=== PATIENT | female | born 1995 | race African-American/Black ===

== ENCOUNTER 2023-04-26 20:01 | Emergency (ER) | payer OTHER, MEDICAID, SELFPAY ==
[2023-04-26 20:05] VITALS: BP 137/84; PULSE 75; RESP 20; TEMP 36.8; O2SAT 100; BMI 19.3
[2023-04-26 21:35] VITALS: PULSE 56; O2SAT 100
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
[2023-04-26 22:00] VITALS: BP 119/83; PULSE 63; O2SAT 100
[2023-04-26 22:00] LABS: Urine Volume 10mL (spun)
[2023-04-26 22:01] LABS: Bacteria Urine Few (2-10); RBC Urine 0-1/HPF (0-5/HPF); Squamous Epithelial Cell Urine 10-30 /HPF (0-5/HPF); WBC Urine 5-10/HPF (0-5/HPF)
[2023-04-26 22:02] LABS: Culture Indicated Urine Specimen Cultured
[2023-04-26 22:30] VITALS: BP 114/76; PULSE 70; O2SAT 100
[2023-04-26 23:00] VITALS: BP 126/82; PULSE 84; O2SAT 100
[2023-04-26] MEDS: SODIUM CHLORIDE 0.9% 1,000 ML 1000 ML IV (23:13)
[2023-04-26] MEDS: KETOROLAC 30 MG/ML VIAL 15 MG IV (23:16)
[2023-04-26] MEDS: HYDROMORPHONE 0.5 MG INJ IV (23:16)
[2023-04-26 23:17] LABS: Add Manual Diff / Slide Review NO; Basophils Absolute Auto 0 /uL (0-100); Basophils Percent Auto 0.9 % (0-2); Eosinophils Absolute Auto 100 /uL (0-450); Eosinophils Percent Auto 1.4 % (2-4); Hematocrit 38.6 % (36-46); Hemoglobin 12.7 g/dL (12.0-16.0); Lymphocytes Absolute Auto 2100 /uL (1100-4500); Lymphocytes Percent Auto 50.8 % (25-40); Mean Corpuscular Hemoglobin 28.4 PG (26-34); Mean Corpuscular Volume 86.1 fL (80-100); Monocytes Absolute Auto 200 /uL (0-900); Monocytes Percent Auto 5.9 % (3-14); Neutrophils Absolute Auto 1700 /uL (1500-7000); Platelet Count 197 X10^3/uL (150-400); Red Blood Cell Count 4.48 X10^6/uL (4.0-5.2); Red Cell Distribution Width 13.5 % (11.6-14.8); White Blood Cell Count 4.2 X10^3/uL (4.5-11.0)
[2023-04-26 23:24] LABS: Alanine Aminotransferase 13 IU/L (<35); Albumin 3.8 g/dL (3.5-5.0); Albumin Globulin Ratio 1.2 (1.0-2.8); Alkaline Phosphatase 46 U/L (38-126); Aspartate Aminotransferase 22 IU/L (14-36); BUN Creatinine Ratio 10.6 (6-22); Bilirubin Total 0.6 mg/dL (0.2-1.3); Blood Urea Nitrogen 7 mg/dL (7-17); Calcium 9.2 mg/dL (8.4-10.2); Carbon Dioxide 27 mmol/L (22-32); Chloride 109 mmol/L (98-107); Estimated Glomerular Filt Rate > 60 mL/min (>60); Globulin 3.1 g/dL (1.7-4.1); Glucose 74 mg/dL (70-100); HEMOLYSIS < 15 (0-50); Lipase 18 U/L (23-300); Magnesium 1.9 mg/dL (1.6-2.3); Potassium 3.5 mmol/L (3.4-5.1); Sodium 142 mmol/L (137-145); Total Protein 6.9 g/dL (6.3-8.2)
[2023-04-26 23:30] VITALS: BP 111/81; PULSE 69; O2SAT 100
[2023-04-27] VITALS (76 sets, daily range): BP systolic 101–145; BP diastolic 57–96; PULSE 55–83; RESP 16–18; TEMP 36.8; O2SAT 96–100; BMI 18.8
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
[2023-04-27 02:53] LABS: Thyroid Stimulating Hormone 0.986 uIU/mL (0.47-4.68)
--- NOTE | 2023-04-27 04:26 | DI.MRI.S_ITS ---
PROCEDURE: MR THORACIC SPINE WO/W CON INDICATIONS: acute paralysis with paresthesia bilateral arms and legs TECHNIQUE: Noncontrast sagittal T1 spin echo and T2 fast spin echo, sagittal STIR, axial T1 and T2 fast spin echo through the thoracic spine. After the administration of contrast, axial and sagittal T1 spin echo with fat saturation through the thoracic spine. COMPARISON: [facility], MR, MR CERVICAL SPINE WO/W CON, 04/27/2023, 7:01. [facility], MR, MR LUMBAR SPINE WO/W CON, 04/27/2023, 7:01. [facility], MR, MR HEAD/BRAIN WO/W CON, 04/27/2023, 7:01. FINDINGS: Image quality: Diagnostic, with note made of motion artifact. Alignment and curvature: There is normal bony alignment. Marrow: Marrow is of normal overall signal. No acute vertebral body compression fractures. Spinal cord: Visualized spinal cord is of normal signal and size, without abnormal enhancement. Paraspinous soft tissues: No paravertebral masses or abnormal enhancement. Miscellaneous: Central canal and foramina appear widely patent at all scanned levels. IMPRESSION: Normal. No abnormal enhancement is seen. Dictated by: Keo Luo M.D. on 04/27/2023 at 8:14 Approved by: Keo Luo M.D. on 04/27/2023 at 8:16
--- NOTE | 2023-04-27 04:26 | DI.MRI.S_ITS ---
PROCEDURE: MR LUMBAR SPINE WO/W CON INDICATIONS: acute paralysis with paresthesia bilateral arms and legs TECHNIQUE: Noncontrast sagittal T1 spin echo and T2 fast spin echo, sagittal STIR, axial T1 and T2 fast spin echo through the lumbar spine. In cases with scoliosis, additional coronal T2 fast spin echo may be performed. After the administration of contrast, sagittal and axial T1 spin echo with fat saturation through the lumbar spine. COMPARISON: [facility], MR, MR CERVICAL SPINE WO/W CON, 04/27/2023, 7:01. [facility], MR, MR THORACIC SPINE WO/W CON, 04/27/2023, 7:01. [facility], MR, MR HEAD/BRAIN WO/W CON, 04/27/2023, 7:01. FINDINGS: Image quality: Diagnostic Alignment and curvature: There is normal bony alignment. Marrow: Marrow is of normal overall signal. No acute vertebral body compression fractures. No suspicious marrow enhancement. Spinal cord: Conus medullaris terminates at the L1 level. Visualized spinal cord demonstrates normal signal, without suspicious enhancement. Paraspinous soft tissues: No paravertebral masses or abnormal enhancement. T12-L1: Normal appearance. L1-L2: Normal appearance. L2-L3: Normal appearance. L3-L4: No significant abnormality is seen L4-L5: The disc height and disk signal are well-preserved. Mild generalized disc bulge is seen. Mild facet joint hypertrophy is seen. No significant neural foraminal or central canal narrowing can be seen. L5-S1: The disc height and disk signal are well-preserved. There is a focal annular fissure seen posteriorly. No neural foraminal narrowing or central canal narrowing can be seen. IMPRESSION: No imaging explanation is found for this patient's presenting symptoms. No abnormal enhancement is seen. Additional findings: L5-S1 annular fissure seen posteriorly. Dictated by: Keo Luo M.D. on 04/27/2023 at 8:12 Approved by: Keo Luo M.D. on 04/27/2023 at 8:14
--- NOTE | 2023-04-27 04:26 | DI.MRI.S_ITS ---
PROCEDURE: MR HEAD/BRAIN WO/W CON INDICATIONS: acute paralysis with paresthesia bilateral arms and legs TECHNIQUE: Noncontrast axial T1 spin echo, axial T2 fast spin echo, sagittal and axial FLAIR, coronal T2 fast spin echo, axial gradient echo, axial diffusion and ADC through the brain. After the administration of contrast, axial and coronal and sagittal 3D VIBE or T1 spin echo with fat saturation through the brain. COMPARISON: [facility], MR, MR THORACIC SPINE WO/W CON, 04/27/2023, 7:01. [facility], MR, MR LUMBAR SPINE WO/W CON, 04/27/2023, 7:01. [facility], MR, MR CERVICAL SPINE WO/W CON, 04/27/2023, 7:01. FINDINGS: Image quality: Excellent. CSF Spaces: Basal cisterns are patent. No extra-axial fluid collections. Ventricles are normal in size and shape. Brain: No midline shift. No intracranial bleeds or masses. No abnormal intracranial enhancement. The brainstem appears normal. Diffusion-weighted images demonstrate no acute infarct. No chronic ischemic insults. Normal intravascular flow voids are present. Skull and face: Calvarial marrow is normal in signal. Orbits appear normal. Sinuses: There is a mucous retention cyst seen within the left maxillary sinus. There is opacification left frontal sinus. Sinuses and mastoids otherwise appear clear. IMPRESSION: No findings of acute or subacute infarction can be seen. No masses or abnormal enhancement can be seen. No imaging explanation is found for this patient's presenting symptoms. No acute intracranial hemorrhage is seen. Additional findings: Focal left frontal paranasal sinus disease Dictated by: Keo Luo M.D. on 04/27/2023 at 8:10 Approved by: Keo Luo M.D. on 04/27/2023 at 8:12
--- NOTE | 2023-04-27 04:26 | DI.MRI.S_ITS ---
PROCEDURE: MR CERVICAL SPINE WO/W CON INDICATIONS: acute paralysis with paresthesia bilateral arms and legs TECHNIQUE: Noncontrast sagittal T1 spin echo and T2 fast spin echo, sagittal STIR, foraminal oblique sagittal T2 fast spin echo, axial gradient echo or T2 fast spin echo through the cervical spine. After the administration of contrast, axial and sagittal T1 spin echo with fat saturation through the cervical spine. COMPARISON: [facility], MR, MR THORACIC SPINE WO/W CON, 04/27/2023, 7:01. [facility], MR, MR LUMBAR SPINE WO/W CON, 04/27/2023, 7:01. [facility], MR, MR HEAD/BRAIN WO/W CON, 04/27/2023, 7:01. FINDINGS: Image quality: Diagnostic, with note made of motion artifact. Alignment and curvature: There is overall straightening of the normal cervical lordosis. No focal AP alignment abnormality is seen. Marrow: Marrow is normal in overall signal, without suspicious enhancement. Spinal cord: Visualized spinal cord has normal size and signal. No cerebellar tonsillar herniation. No abnormal intramedullary enhancement. Paraspinous soft tissues: No paravertebral masses or suspicious enhancement. C2-3: Normal appearance. C3-4: Normal appearance. C4-5: Normal appearance. C5-6: Normal appearance. C6-7: Normal appearance. C7-T1: Normal appearance. IMPRESSION: No imaging explanation is found for this patient's presenting symptoms. Straightening of the normal cervical lordosis is seen, which is commonly observed in patients with muscular spasm. No abnormal enhancement is seen. Dictated by: Keo Luo M.D. on 04/27/2023 at 8:16 Approved by: Keo Luo M.D. on 04/27/2023 at 8:18
--- NOTE | 2023-04-27 07:27 | PC.NURSE ---
Patient went with senior games technician for MRI.
[2023-04-27] MEDS: HYDROMORPHONE 0.5 MG INJ IV ×6 (09:26→22:53)
[2023-04-27 09:43] LABS: Bilirubin Urine UA NEGATIVE (NEGATIVE); Glucose Urine UA NEGATIVE (Negative); Ketones Urine UA TRACE (NEGATIVE); Leukocyte Esterase Urine UA 1+ (NEGATIVE); Nitrite Urine UA NEGATIVE (Negative); Occult Blood Urine UA NEGATIVE (Negative); Protein Urine UA 1+ (Negative); Specific Gravity Urine UA >=1.030 (1.000-1.035); Urobilinogen Urine UA 0.2 E.U./dL (0.2)
[2023-04-27 09:49] LABS: Appearance Urine UA Slightly Cloudy; Color Urine UA Amber
[2023-04-27 10:12] LABS: RBC Urine 1-5/HPF (0-5/HPF); Urine Volume 10mL (spun); WBC Urine 10-30/HPF (0-5/HPF)
[2023-04-27 10:13] LABS: Bacteria Urine Few (2-10); Culture Indicated Urine Cult Not Indicated; Squamous Epithelial Cell Urine 10-30 /HPF (0-5/HPF)
[2023-04-27] MEDS: cefTRIAXone 1,000 MG in SODIUM CHLORIDE 0.9% 100 ML 200 MG IV (10:16)
--- NOTE | 2023-04-27 10:33 | PC.NURSE ---
This FIRE BOAT ENGINEER elevated HOB to assist with feeding pt. full assist feeding. asked pt what food she would like to start with. cut the food into small pieces and fed pt when she was ready for a new bite. pt ate 100% of meal and drank 236ml of milk.
--- NOTE | 2023-04-27 10:38 | PC.NURSE ---
*TELLER MANAGER note pushed images and faxed face sheet and doc note to [facility]ce [facility]far[facility]. [facility] says no beds for approx 24-48hrs
[2023-04-27] MEDS: ENOXAPARIN 40 MG/0.4 ML SYRINGE SUBCUT (13:50)
[2023-04-27 15:41] LABS: Vitamin B12 455 pg/mL (239-931)
--- NOTE | 2023-04-27 17:13 | PC.NURSE ---
*SQUEEGEE OPERATOR note called [facility] for a bed placement and they let me know that they dont have one yet and they are short staffed tonight but they will do their best @ [phone]
--- NOTE | 2023-04-27 17:14 | PC.NURSE ---
This RN performed a skin check on patient with SITE ACQUISITION SPECIALIST and skin is uniformly intact.
--- NOTE | 2023-04-27 18:05 | PC.NURSE ---
During lumbar puncture provider requested additional lidocaine without epi 1%. This RN went and overrided the medication and assisted provider to get lidocaine needed.
[2023-04-27] MEDS: LIDOCAINE 1% 20 ML INJ (18:09)
[2023-04-27 18:29] LABS: Glucose CSF 58 mg/dL (40-70); Total Protein CSF 96 mg/dL (12-60)
--- NOTE | 2023-04-27 18:49 | PC.NURSE ---
This RN gave verbal report to MYNOR Dominguez at [facility].
[2023-04-27 19:20] LABS: CSF Tube Number 3; CSF Tube Volume 0.5 mL
[2023-04-27 19:21] LABS: Appearance CSF CLEAR (Clear); Color CSF COLORLESS (Colorless); Red Blood Cell CSF 1534 RBC /uL; White Blood Cell CSF 1 MONO/uL (0-5)
[2023-04-27 19:47] LABS: Cryptococcus neoformans/gattii Not Detected (Not Detect); Enterovirus Not Detected (Not Detect); Escherichia coli K1 Not Detected (Not Detect); Haemophilus influenzae Not Detected (Not Detect); Herpes simplex virus 1 Not Detected (Not Detect); Herpes simplex virus 2 Not Detected (Not Detect); Human herpesvirus 6 Not Detected (Not Detect); Human parechovirus Not Detected (Not Detect); Listeria monocytogenes Not Detected (Not Detect); Neisseria meningitidis Not Detected (Not Detect); Streptococcus agalactiae Not Detected (Not Detect); Streptococcus pneumoniae Not Detected (Not Detect); Varicella Zoster Virus Not Detected (Not Detecte)
[2023-04-27 22:02] LABS: COVID19 -Nasal RAPID Negative (Negative)
[2023-04-28 16:31] LABS: Acinetobacter calcoa-baumannii Not Detected (Not Detect); Bacteroides fragilis Not Detected (Not Detect); Candida albicans Not Detected (Not Detect); Candida auris Not Detected (Not Detect); Candida glabrata Not Detected (Not Detect); Candida krusei Not Detected (Not Detect); Candida parapsilosis Not Detected (Not Detect); Candida tropicalis Not Detected (Not Detect); Cryptococcus neoformans/gatti Not Detected (Not Detect); Enterobacter cloacae complex Not Detected (Not Detect); Enterobacterales Not Detected (Not Detect); Enterococcus faecalis Not Detected (Not Detect); Enterococcus faecium Not Detected (Not Detect); Haemophilus influenzae Not Detected (Not Detect); Klebsiella aerogenes Not Detected (Not Detect); Listeria monocytogenes Not Detected (Not Detect); Neisseria meningitidis Not Detected (Not Detect); Proteus species Not Detected (Not Detect); Pseudomonas aeruginosa Not Detected (Not Detect); Salmonella species Not Detected (Not Detect); Serratia marcescens Not Detected (Not Detect); Staphylococcus epidermidis Not Detected (Not Detect); Staphylococcus lugdunensis Not Detected (Not Detect); Staphylococcus species Not Detected (Not Detect); Stenotrophomonas maltophilia Not Detected (Not Detect); Streptococcus agalactiae (Gr B Not Detected (Not Detect); Streptococcus pneumonia Not Detected (Not Detect); Streptococcus pyogenes (Gr A) Not Detected (Not Detect); Streptococcus species Not Detected (Not Detect)
[2023-05-01 16:01] LABS: ANA Screen, IFA Negative (.)
== END 2023-04-27 23:12 | disposition short-term general hospital (02) ==
PROVIDERS: Emergency Medicine; Emergency Provider Emergency Medicine
DX: G83.9 Paralytic syndrome, unspecified (principal); Z74.09 Other reduced mobility; Z20.822 Contact with and (suspected) exposure to COVID-19
CPT/HCPCS: 36415; 51798; 62270; 70553; 72156; 72157; 72158; 80053; 81001; 81003; 81015; 81025; 82525; 82607; 82945; 83605; 83690; 83735; 84157; 84443; 85025; 86038; 87040; 87070; 87077; 87086; 87154; 87205; 87635; 87798; 89051; 96361; 96365; 96372; 96375; 96376; 99285; J0696; J1170; J1650; J1885

== ENCOUNTER 2023-05-03 15:16 | Emergency (ER) | payer OTHER, MEDICAID, SELFPAY ==
[2023-04-27 13:49] VITALS: BMI 18.8
[2023-05-03] VITALS (10 sets, daily range): BP systolic 112–134; BP diastolic 63–89; PULSE 80–135; RESP 12–24; TEMP 36.4–36.9; O2SAT 99–100
--- NOTE | 2023-05-03 15:58 | PC.NURSE ---
Called to bedsde by pt's brother. Pt eyes closed. HR [address] Bauman called to bedside. Seizure pads placed and IV placed. Pt arousable to painful stimuli and confused upon awakening.
[2023-05-03 16:40] LABS: Add Manual Diff / Slide Review NO; Basophils Absolute Auto 0 /uL (0-100); Basophils Percent Auto 0.6 % (0-2); Eosinophils Absolute Auto 100 /uL (0-450); Eosinophils Percent Auto 1.1 % (2-4); Hematocrit 38.8 % (36-46); Hemoglobin 13.1 g/dL (12.0-16.0); Lymphocytes Absolute Auto 1700 /uL (1100-4500); Mean Corpuscular HGB Conc 33.8 % (30-36); Mean Corpuscular Hemoglobin 29.1 PG (26-34); Mean Corpuscular Volume 86.3 fL (80-100); Monocytes Absolute Auto 300 /uL (0-900); Monocytes Percent Auto 7.4 % (3-14); Neutrophils Absolute Auto 2500 /uL (1500-7000); Neutrophils Percent Auto 53.9 % (50-75); Platelet Count 191 X10^3/uL (150-400); Red Blood Cell Count 4.49 X10^6/uL (4.0-5.2); Red Cell Distribution Width 13.3 % (11.6-14.8); White Blood Cell Count 4.7 X10^3/uL (4.5-11.0)
[2023-05-03 16:46] LABS: Alanine Aminotransferase 19 IU/L (<35); Albumin 4.1 g/dL (3.5-5.0); Albumin Globulin Ratio 1.3 (1.0-2.8); Alkaline Phosphatase 50 U/L (38-126); Aspartate Aminotransferase 32 IU/L (14-36); Bilirubin Total 0.6 mg/dL (0.2-1.3); Blood Urea Nitrogen 12 mg/dL (7-17); Calcium 9.2 mg/dL (8.4-10.2); Carbon Dioxide 25 mmol/L (22-32); Chloride 106 mmol/L (98-107); Estimated Glomerular Filt Rate > 60 mL/min (>60); Globulin 3.1 g/dL (1.7-4.1); Glucose 81 mg/dL (70-100); HEMOLYSIS 21 (0-50); Potassium 3.7 mmol/L (3.4-5.1); Sodium 139 mmol/L (137-145); Total Protein 7.2 g/dL (6.3-8.2)
[2023-05-03] MEDS: SODIUM CHLORIDE 0.9% 1,000 ML 1000 ML IV (16:47)
[2023-05-03 16:58] LABS: Troponin I < 0.012 ng/mL (0.01-0.034)
[2023-05-03 17:03] LABS: Prolactin 16.4 ng/mL (3.0-18.6)
--- NOTE | 2023-05-03 17:46 | ED_ITS ---
HPI - Dizziness General Chief Complaint: Dizziness Stated Complaint: lighthead/ double vision/fatigued t-3 Time Seen by Provider: 05/03/23 15:55 Source: patient and family Mode of arrival: Wheelchair History of Present Illness HPI Narrative: Patient 27-year-old female who presents today with dizziness. She was seen evaluated here last week with paralysis she had a full workup including complete MRI was ultimately transferred to [facility] where she had full neurologic evaluation including EMG is and EEGs. She ambulated out of [facility] family continues to be very involved everyone is on face time in the room with her brothers. She came to the ED DD and had a near syncopal episode on the bed. No obvious shaking or seizure activity there was no postictal activity. She was responsive during the episode but refused to talk now after the episode she stutters. She was not stuttering at any other time until now. She has been complaining of a headache ever since she left [facility]. She has taken a leave it has not really helped. Family reports that she sometimes passes out while eating, but this was different. Mom is on a phone and will be coming here on an airplane tomorrow. Related Data Home Medications Medication Instructions Recorded Confirmed No Known Home Medications 04/27/23 04/27/23 Allergies Allergy/AdvReac Type Severity Reaction Status Date / Time No Known Drug Allergies Allergy Verified 04/26/23 20:17 Patient History Social History Smoking Status: Current some day smoker Smoking Status: Current some day smoker alcohol intake frequency: 0-2 drinks per day Substance Use Type: marijuana Exam Initial Vital Signs Initial Vital Signs: Vital Signs Temperature 97.5 F L 05/03/23 15:19 Pulse Rate 80 05/03/23 15:19 Respiratory Rate 20 05/03/23 15:19 Blood Pressure 112/63 05/03/23 15:19 Pulse Oximetry 99 05/03/23 15:19 Oxygen Delivery Method Room Air 05/03/23 15:19 GENERAL: Awake alert 27-year-old female HEENT: Head atraumatic,EOMI, pupils reactive, face symmetric, moist mucous membranes CARDIOVASCULAR: Regular rate and rhythm without murmurs, rubs or gallops. RESPIRATORY: Breath sounds equal bilaterally, no wheezes rales or rhonchi. ABDOMEN: Soft, nontender. Normoactive bowel sounds all 4 quadrants. No guarding or rebound. EXTREMITIES: Normal range of motion, no clubbing or edema. Neurovascularly intact NEUROLOGICAL: Alert and oriented x4.Normal gait and speech. Cranial nerves II through XII grossly intact. Good [id number]-fu-uksm, good dnza-tl-vvns, strength equal bilaterally, no dysarthria or aphasia, sensation in tact to soft touch bilaterally, no visual changes, no facial droop SKIN: Warm, dry, no laceration, no petechiae, no rashes or lesions. Course Orders Ordered: ED Orders 05/03/23 15:50 CBC Auto Diff [Complete Blood Count AUTO DIFF] Stat CMP [Comprehensive Metabolic Panel] Stat Prolactin Stat Troponin I Stat 05/03/23 16:59 EKG-12 Lead Stat 05/03/23 18:32 Urine Culture Stat Urine Microscopic Stat Discontinued Medications Sodium Chloride (Normal Saline 0.9%) 1,000 mls @ 150 mls/hr IV CONT JONAS Last Admin: 05/03/23 16:47 Dose: Not Given Documented By: LIUDMILA Sodium Chloride (Normal Saline 0.9%) 1,000 mls @ 1,000 mls/hr IV BOLUS ONE Stop: 05/03/23 17:29 Last Infusion: 05/03/23 18:14 Dose: Infused Documented By: Admin: 05/03/23 16:47 Dose: 1,000 mls/hr Documented By: LIUDMILA Ketorolac Tromethamine (Ketorolac 30 Mg/Ml Vial) 15 mg IV NOW ONE Stop: 05/03/23 17:53 Last Admin: 05/03/23 18:17 Dose: 15 mg Documented By: LIUDMILA Vital Signs Vital signs: Vital Signs - 8 hr 05/03/23 15:19 05/03/23 15:56 05/03/23 16:06 Temperature 97.5 F L Pulse Rate 80 135 H Respiratory Rate 20 24 12 Blood Pressure 112/63 131/89 Pulse Oximetry 99 99 100 Oxygen Delivery Method Room Air Room Air 05/03/23 16:12 05/03/23 16:12 05/03/23 16:15 Temperature Pulse Rate 90 88 Respiratory Rate 17 12 Blood Pressure 131/89 Pulse Oximetry 100 100 Oxygen Delivery Method 05/03/23 16:30 05/03/23 16:30 05/03/23 16:45 Temperature Pulse Rate 87 86 Respiratory Rate 16 13 Blood Pressure 134/80 Pulse Oximetry 100 100 Oxygen Delivery Method 02/23/24 17:00 05/03/23 17:00 05/03/23 17:15 Temperature Pulse Rate 83 85 Respiratory Rate 21 15 Blood Pressure 131/77 Pulse Oximetry 100 100 Oxygen Delivery Method 05/03/23 19:03 Temperature 98.5 F Pulse Rate 86 Respiratory Rate 20 Blood Pressure 127/71 Pulse Oximetry 100 Oxygen Delivery Method Room Air MDM - Dizziness Lab Data 05/03/23 15:50 05/03/23 15:50 Labs: Lab Results 05/03/23 05/03/23 Range/Units 15:50 18:32 WBC 4.7 (4.5-11.0) X10^3/uL RBC 4.49 (4.0-5.2) X10^6/uL Hgb 13.1 (12.0-16.0) g/dL Hct 38.8 (36-46) % MCV 86.3 (80-100) fL MCH 29.1 (26-34) PG MCHC 33.8 (30-36) % RDW 13.3 (11.6-14.8) % Plt Count 191 (150-400) X10^3/uL Neut % (Auto) 53.9 (50-75) % Lymph % (Auto) 37.0 (25-40) % Cherry % (Auto) 7.4 (3-14) % Eos % (Auto) 1.1 L (2-4) % Baso % (Auto) 0.6 (0-2) % Neut # (Auto) 2500 (9321-4541) /uL Lymph # (Auto) 1700 (6647-3885) /uL Cherry # (Auto) 300 (0-900) /uL Eos # (Auto) 100 (0-450) /uL Baso # (Auto) 0 (0-100) /uL Sodium 139 (137-145) mmol/L Potassium 3.7 (3.4-5.1) mmol/L Chloride 106 (98-107) mmol/L Carbon Dioxide 25 (22-32) mmol/L BUN 12 (7-17) mg/dL Creatinine 0.63 (0.52-1.04) mg/dL Estimated GFR > 60 (>60) mL/min BUN/Creatinine Ratio 19.0 (6-22) Glucose 81 (70-100) mg/dL Calcium 9.2 (8.4-10.2) mg/dL Total Bilirubin 0.6 (0.2-1.3) mg/dL AST 32 (14-36) IU/L ALT 19 (<35) IU/L Alkaline Phosphatase 50 (38-126) U/L Troponin I < 0.012 (0.01-0.034) ng/mL Total Protein 7.2 (6.3-8.2) g/dL Albumin 4.1 (3.5-5.0) g/dL Globulin 3.1 (1.7-4.1) g/dL Albumin/Globulin Ratio 1.3 (1.0-2.8) Prolactin 16.4 (3.0-18.6) ng/mL Urine RBC 0-1/hpf (0-5/HPF) Urine WBC 1-5/hpf (0-5/HPF) Ur Squamous Epith Cells 1-5 /hpf D (0-5/HPF) Urine Bacteria Few (2-10) H (None) Ur Culture Indicated? Specimen cultured Vol Urine Centrifuged 10ml (spun) Point of Care Testing Test Results Negative Urine Dip Bedside Urine Glucose Negative Bedside Urine Bilirubin - Negative Bedside Urine Ketone - Negative Urine Specific [place] 1.010 Bedside Urine Occult Blood - Negative Bedside Urine pH 7.0 Bedside Urine Protein - Negative Bedside Urine Urobilinogen - Negative Bedside Urine Nitrite - Negative Bedside Urine Leukocytes +++ 500 Esterase MDM Narrative Medical decision making narrative: Patient 27-year-old female presents today with a syncopal episode dizziness and headache. She has had complete neurologic evaluation recently I discussed with family about possibility of PTSD. They report that Kayce marcano address that as well they do report a history of PTSD. I have explained that sometimes PTSD and psychologic disorders can present physically which I think would that is happening now. I encouraged him to go down a psychologic route rather than neurologic route. All neurologic studies have come back negative. Blood work today has been reviewed and is again negative. She is given IV fluids and Toradol here in the ED I have explained that she will be going home. Patient ambulated without assistance and was speaking in full sentences upon discharge Discharge Plan Departure Patient Disposition: Home Clinical Impression: PTSD (post-traumatic stress disorder) Instructions: Cognitive Behavioral Therapy Is an Effective, but Short-term Treatment for , Post-traumatic Stress Disorder Activity Restrictions/Additional Instructions: *You have been diagnosed with PTSD *What to do: At this time neurologic studies happened negative I would encourage you to pursue a psychological around in a PTSD route. Psychological diseases can present and physical forms. Encouraged to get a primary care provider *Continue to take medications as directed *Follow up with your primary care provider in 2-3 days or call [phone] *Return to ER if you should have any new, worsening or concerning symptoms Prescriptions: No Action No Known Home Medications Referrals: Miscellaneous,Doctor, [Primary Care Provider] - Stand Alone Forms: Patient Portal/API
[2023-05-03] MEDS: KETOROLAC 30 MG/ML VIAL 15 MG IV (18:17)
--- NOTE | 2023-05-03 18:31 | PC.NURSE ---
Pt ambulated to bathroom with stand by assist. Pt speaking in full sentences and answers all questions appropriately.
[2023-05-03 18:56] LABS: Urine Volume 10mL (spun)
[2023-05-03 19:05] LABS: Bacteria Urine Few (2-10); Culture Indicated Urine Specimen Cultured; RBC Urine 0-1/HPF (0-5/HPF); Squamous Epithelial Cell Urine 1-5 /HPF (0-5/HPF); WBC Urine 1-5/HPF (0-5/HPF)
== END 2023-05-03 19:05 | disposition home or self-care (01) ==
PROVIDERS: Emergency Provider Emergency Medicine
DX: F43.10 Post-traumatic stress disorder, unspecified (principal); R42 Dizziness and giddiness; R51.9 Headache, unspecified
CPT/HCPCS: 36415; 80053; 81003; 81015; 81025; 84146; 84484; 85025; 87086; 93005; 96361; 96374; 99284; J1885

== ENCOUNTER 2023-06-20 04:26 | Inpatient (IN) | payer OTHER, MEDICAID, SELFPAY ==
[2023-04-27 13:49] VITALS: BMI 18.8
[2023-06-20] VITALS (26 sets, daily range): BP systolic 112–135; BP diastolic 60–89; PULSE 56–104; RESP 14–18; TEMP 36.1–36.8; O2SAT 93–100; BMI 19.3
--- NOTE | 2023-06-20 | DI.RAD.S_ITS ---
PROCEDURE: XR CHEST 1V INDICATIONS: NG TUBE PLACEMENT TECHNIQUE: One view of the chest was acquired. COMPARISON: None. FINDINGS: Surgical changes and devices: NG tube projects to the stomach. Lungs and pleura: Lungs are clear. No pleural effusions or pneumothorax. Mediastinum: Mediastinal contours appear normal. Heart size is normal. Bones and chest wall: No suspicious bony lesions. Overlying soft tissues appear unremarkable. IMPRESSION: NG tube projects to the stomach. No acute pulmonary process. Dictated by: Seth Soria M.D. on 06/20/2023 at 16:33 Approved by: Seth Soria M.D. on 06/20/2023 at 16:35
--- NOTE | 2023-06-20 | PATH_ITS ---
[facility] Accession Number: [id number] No. of containers..01 Tissue . 01 Material submitted: . small bowel - SMALL BOWEL, SEGMENTAL RESECTION . 01 Diagnosis: SMALL BOWEL, SEGMENTAL RESECTION: 1. Segment of small bowel with serositis and adhesions, with associated congestion and hemorrhage. 2. Associated active mucosal inflammation with erosion, present primarily in the involved region. 3. No endometrial glands or stroma identified. 4. No dysplasia, malignancy, granulomas, or infectious organisms identified. See comment. . Specimen Comments: The clinical suspicion for possible endometriosis is noted, but no endometrial glands or stroma are seen in the multiple sections examined. The possibility of endometriosis is not entirely ruled out, but the differential includes many other causes of bowel adhesions and bowel obstruction. The presence of ileal inflammation likely is secondary to the presence of bowel adhesions and obstruction, although mucosal inflammatory conditions (e.g, Crohn's), may also be considered. This case was also reviewed by Dr. Jauregui, who concurs with this evaluation. Preliminary findings were discussed with Dr. Murcia by Dr. Martinez on 06/27/2023. STO 06/28/2023 1105 Local . 01 Electronically signed: . Salvatore Martinez MD, Pathologist NPI- [id number] . 01 Gross description: . Received in formalin, labeled with two identifiers and small bowel, is an unoriented fragment of small bowel measuring 11.6 cm in length by 2.1 cm in average diameter with mesentery extending out to 3.1 cm. The serosa is dusky with an annular roughened indent measuring 5.0 cm from the nearest margin, which is inked blue. The opposite margin is inked black, the mesenteric margin is inked green, and the annular roughened serosa inked orange. The lumen contains rogers to orange semisolid material and is patent. The mucosa is rogers and velvety with two roughened areas, both measuring 1.0 x 0.5 cm. The folds are unremarkable with no additional lesions identified. The arevalo average 0.3 cm thick. Palpation reveals six rogers lymph node candidates ranging from 0.2 cm to 0.6 cm in greatest dimension. Advertising Operations Coordinator sections are submitted as follows: A1: Advertising Operations Coordinator margins en face. A2: Areas of roughened mucosa and serosa. A3: Unremarkable full-thickness sections. A4: Three intact lymph node candidates. A5: Three intact lymph node candidates. ([id number]) . The remaining orange-inked roughened serosa is submitted in A6-A7. ([id number]) /FRR 06/28/2023 1105 Local . 01 Pathologist provided ICD-10: K56.50, K56.609 . 01 CPT . 284695 Performed at: 01 [facility] [address] [place] [address], [place], [place] [id number] MD Salvatore Martinez MD Phone: [phone]
--- NOTE | 2023-06-20 04:32 | DI.CT.S_ITS ---
PROCEDURE: CT ABDOMEN PELVIS W CON INDICATIONS: l sided abd pain TECHNIQUE: After the administration of intravenous contrast, axial sections acquired from the lung bases to the pubic symphysis. Coronal and sagittal reformats were performed. For radiation dose reduction, the following was used: automated exposure control, adjustment of mA and/or kV according to patient size. COMPARISON: None. FINDINGS: Image quality: Diagnostic. Lower Chest: No significant findings. ABDOMEN: Liver: No solid mass. Gallbladder: No radiopaque gallstones or wall thickening. Biliary ducts: No biliary dilation. Pancreas: No ductal dilation. Spleen: Size is within normal limits. Adrenal Glands: No adrenal nodules. Kidneys and Ureters: No hydronephrosis. No solid mass. No complex renal cystic lesion which requires follow up. Stomach and Bowel: There is a small bowel obstruction present. Question closed loop obstruction. The obstructed small bowel has normal small bowel both proximal to it and distal to it, raising this concern. Small bowel is dilated up to 3.2 cm. There is fecalization of material within this small bowel loop. The wall is not thickened. There is no intramural gas. There is no free air. Peritoneum: Mild ascites. No free air. Ventral Wall: No significant ventral hernia. Abdominal Nodes: No retroperitoneal or mesenteric adenopathy by size criteria. Vessels: Aorta and inferior vena cava are normal in size. PELVIS: Pelvic Organs: Unremarkable. Bladder: No bladder wall thickening, accounting for underdistention. Pelvic Nodes: No enlarged lymph nodes. Miscellaneous: No inguinal hernias are seen. Bones: No aggressive osseous abnormality. IMPRESSION: 1. Small bowel obstruction. Question the presence of a closed loop obstruction. 2. Mild ascites. Comment: Recommend surgical consultation. Comment: Final report is concordant with preliminary interpretation provided by [facility]. Dictated by: Seth Soria M.D. on 06/20/2023 at 7:24 Approved by: Seth Soria M.D. on 06/20/2023 at 7:40
--- NOTE | 2023-06-20 04:33 | ED_ITS ---
HPI - General Adult General Chief complaint: Abdominal Pain Stated complaint: abd pain Time Seen by Provider: 06/20/23 04:27 Source: patient Mode of arrival: EMS Limitations: no limitations History of Present Illness HPI narrative: Patient is a 27-year-old female here for evaluation of left-sided abdominal discomfort. He states she was woken from sleep with discomfort tonight. She would symptoms similar to this about a week ago where she was seen at an outside facility and was diagnosed with a kidney infection. She has been taking the antibiotics as directed. She states she has not had a bowel movement several days. She received Zofran and fentanyl prior to arrival. Pain is worse with palpation. No urinary symptoms. No prior abdominal surgeries. She states she has been having progressively worsening discomfort in her abdomen with vomiting over the past week. Related Data Home Medications Medication Instructions Recorded Confirmed No Known Home Medications 04/27/23 04/27/23 Allergies Allergy/AdvReac Type Severity Reaction Status Date / Time No Known Drug Allergies Allergy Verified 04/26/23 20:17 Review of Systems Constitutional Constitutional: Reports system reviewed and no additional complaints, except as documented Gastrointestinal Gastrointestinal: Reports system reviewed and no additional complaints, except as documented Genitourinary Genitourinary: Reports system reviewed and no additional complaints, except as documented Integumentary/Breasts Skin/Breast: Reports system reviewed and no additional complaints, except as documented Patient History Social History Smoking Status: Current some day smoker Smoking Status: Current some day smoker alcohol intake frequency: 0-2 drinks per day Substance Use Type: marijuana Exam Initial Vital Signs Initial Vital Signs: Vital Signs Pulse Rate 85 06/20/23 04:31 Pulse Oximetry 98 06/20/23 04:31 HENIA Head: normal to inspection and normocephalic Resp Effort & Inspection: normal respiratory effort Cardio Rate: regular rate GI Inspection: normal to inspection and non-distended Palpation: soft, No firm, No guarding and tender Back/Spine/Pelvis Back: CVA tenderness left Skin General: no rashes or lesions noted Neuro General: patient alert and patient awake Course Orders Ordered: ED Orders 06/20/23 04:32 CT abdomen pelvis w con Stat 06/20/23 04:35 Complete Blood Count AUTO DIFF Stat Comprehensive Metabolic Panel Stat Lipase Stat Test Serum,Qual Stat 06/20/23 06:04 Lactate (Lactic Acid) Stat Sodium Chloride (Normal Saline 0.9%) 1,000 mls @ 125 mls/hr IV CONT JONAS Last Admin: 06/20/23 04:55 Dose: 125 mls/hr Documented By: AB Discontinued Medications Ketorolac Tromethamine (Ketorolac 30 Mg/Ml Vial) 30 mg IV NOW ONE Stop: 06/20/23 05:57 Last Admin: 06/20/23 06:01 Dose: 30 mg Documented By: AB Vital Signs Vital signs: Vital Signs - 8 hr 06/20/23 04:31 06/20/23 04:32 06/20/23 05:00 Temperature 97.5 F L Pulse Rate 85 76 69 Respiratory Rate 16 Blood Pressure 119/82 Pulse Oximetry 98 99 98 Oxygen Delivery Method Room Air 06/20/23 05:30 06/20/23 06:00 Temperature Pulse Rate 60 63 Respiratory Rate Blood Pressure Pulse Oximetry 100 100 Oxygen Delivery Method Medical Decision Making Medical Records Medical records reviewed: Yes I reviewed the patient's medical records. Lab Data Lab results reviewed: Yes I reviewed the patient's lab results. 06/20/23 04:35 06/20/23 04:35 Labs: Lab Results 06/20/23 Range/Units 04:35 WBC 6.5 (4.5-11.0) X10^3/uL RBC 4.42 (4.0-5.2) X10^6/uL Hgb 12.5 (12.0-16.0) g/dL Hct 37.4 (36-46) % MCV 84.7 (80-100) fL MCH 28.2 (26-34) PG MCHC 33.4 (30-36) % RDW 12.9 (11.6-14.8) % Plt Count 551 H (150-400) X10^3/uL Neut % (Auto) 71.7 (50-75) % Lymph % (Auto) 21.1 L (25-40) % Rains % (Auto) 5.7 (3-14) % Eos % (Auto) 0.7 L (2-4) % Baso % (Auto) 0.8 (0-2) % Neut # (Auto) 4700 (6569-5213) /uL Lymph # (Auto) 1400 (3807-0429) /uL Rains # (Auto) 400 (0-900) /uL Eos # (Auto) 0 (0-450) /uL Baso # (Auto) 0 (0-100) /uL Sodium 142 (137-145) mmol/L Potassium 4.0 (3.4-5.1) mmol/L Chloride 106 (98-107) mmol/L Carbon Dioxide 31 (22-32) mmol/L BUN 12 (7-17) mg/dL Creatinine 0.64 (0.52-1.04) mg/dL Estimated GFR > 60 (>60) mL/min BUN/Creatinine Ratio 18.8 (6-22) Glucose 106 H (70-100) mg/dL Calcium 9.5 (8.4-10.2) mg/dL Total Bilirubin 0.4 (0.2-1.3) mg/dL AST 22 (14-36) IU/L ALT 13 (<35) IU/L Alkaline Phosphatase 79 (38-126) U/L Total Protein 7.7 (6.3-8.2) g/dL Albumin 3.5 (3.5-5.0) g/dL Globulin 4.2 H (1.7-4.1) g/dL Albumin/Globulin Ratio 0.8 L (1.0-2.8) Lipase 19 L (23-300) U/L Serum , Qual Negative (Negative) Point of Care Testing Test Results Negative Urine Dip Bedside Urine Glucose Negative Bedside Urine Bilirubin - Negative Bedside Urine Ketone - Negative Urine Specific [place] 1.015 Bedside Urine Occult Blood - Negative Bedside Urine pH 8.0 Bedside Urine Protein +/- 15 Bedside Urine Urobilinogen - Negative Bedside Urine Nitrite - Negative Bedside Urine Leukocytes - Negative Esterase Point of care testing: Point of Care Testing Test Results Negative Urine Dip Bedside Urine Glucose Negative Bedside Urine Bilirubin - Negative Bedside Urine Ketone - Negative Urine Specific [place] 1.015 Bedside Urine Occult Blood - Negative Bedside Urine pH 8.0 Bedside Urine Protein +/- 15 Bedside Urine Urobilinogen - Negative Bedside Urine Nitrite - Negative Bedside Urine Leukocytes - Negative Esterase Imaging Data CT scan - abdomen/pelvis: Radiologist's Impression: Findings compatible with a small-bowel obstruction with a transition point within the mid abdomen. Mild swirling of the mesenteric vessels within this region. Can not exclude the possibility of an internal hernia or volvulus. MDM Narrative Medical decision making narrative: Patient does have a relatively benign abdominal exam but has discomfort on the left side. Labs today relatively unremarkable. Urinalysis shows no signs of UTI. CT scan concerning for small bowel obstruction. Discussed the case with Dr. Billingsley on-call for General surgery who will admit for further evaluation and treatment. Discussed the need for admission with the patient. She expressed understanding and agreement as well. Discharge Plan Departure Patient Disposition: Admitted as Observation Clinical Impression: Small bowel obstruction Admit Date/Time: 06/20/23 06:08 Admit Provider: Jacob Billingsley
--- NOTE | 2023-06-20 04:49 | PC.NURSE ---
Pt seen recently for kidney/bladder infection at [facility]. Pt has been seen by [facility] Neurology within the last month due to difficulty moving. Ruled out MG, but currently has no diagnosis for immobility issues. Pt has stopped going to cosmetology school due to the limitations with standing. Since around end of May beginning of June pt has been on medical leave from work/school.
[2023-06-20] MEDS: SODIUM CHLORIDE 0.9% 1,000 ML 125 ML IV ×3 (04:55→23:22)
[2023-06-20 05:25] LABS: Add Manual Diff / Slide Review NO; Basophils Absolute Auto 0 /uL (0-100); Basophils Percent Auto 0.8 % (0-2); Eosinophils Absolute Auto 0 /uL (0-450); Eosinophils Percent Auto 0.7 % (2-4); Hematocrit 37.4 % (36-46); Hemoglobin 12.5 g/dL (12.0-16.0); Lymphocytes Absolute Auto 1400 /uL (1100-4500); Lymphocytes Percent Auto 21.1 % (25-40); Mean Corpuscular HGB Conc 33.4 % (30-36); Mean Corpuscular Hemoglobin 28.2 PG (26-34); Mean Corpuscular Volume 84.7 fL (80-100); Monocytes Absolute Auto 400 /uL (0-900); Monocytes Percent Auto 5.7 % (3-14); Neutrophils Absolute Auto 4700 /uL (1500-7000); Neutrophils Percent Auto 71.7 % (50-75); Platelet Count 551 X10^3/uL (150-400); Red Blood Cell Count 4.42 X10^6/uL (4.0-5.2); Red Cell Distribution Width 12.9 % (11.6-14.8); White Blood Cell Count 6.5 X10^3/uL (4.5-11.0)
[2023-06-20 05:28] LABS: Alanine Aminotransferase 13 IU/L (<35); Albumin 3.5 g/dL (3.5-5.0); Albumin Globulin Ratio 0.8 (1.0-2.8); Alkaline Phosphatase 79 U/L (38-126); Aspartate Aminotransferase 22 IU/L (14-36); BUN Creatinine Ratio 18.8 (6-22); Bilirubin Total 0.4 mg/dL (0.2-1.3); Blood Urea Nitrogen 12 mg/dL (7-17); Calcium 9.5 mg/dL (8.4-10.2); Carbon Dioxide 31 mmol/L (22-32); Chloride 106 mmol/L (98-107); Estimated Glomerular Filt Rate > 60 mL/min (>60); Globulin 4.2 g/dL (1.7-4.1); Glucose 106 mg/dL (70-100); HEMOLYSIS < 15 (0-50); Lipase 19 U/L (23-300); Sodium 142 mmol/L (137-145); Total Protein 7.7 g/dL (6.3-8.2)
[2023-06-20 05:38] LABS: Pregnancy Test Serum,Qual Negative (Negative)
[2023-06-20] MEDS: KETOROLAC 30 MG/ML VIAL IV (06:01)
[2023-06-20] MEDS: PANTOPRAZOLE 40 MG VIAL IV (06:33)
[2023-06-20] MEDS: ONDANSETRON 4 MG/2 ML INJ IV ×2 (07:40→18:34)
--- NOTE | 2023-06-20 08:49 | PC.NURSE ---
Dr. Murcia contacted again regarding admission orders. Pt endorses 9/10 pain on left side; pt states this is similar to earlier. MD notified. Pt remains hypodermically stable at this time. Currently resides in ED waiting for open floor bed. Pt states nausea is resolved at this time.
[2023-06-20] MEDS: HYDROMORPHONE 0.5 MG INJ IV ×3 (09:14→16:10)
--- NOTE | 2023-06-20 11:35 | PM.HP.1 ---
History of Present Illness History of Present Illness Date Patient Seen: 06/20/23 Time Patient Seen: 11:36 Chief complaint: abd pain Narrative: Ariela Cifuentes is a 27-year-old woman who presented to the emergency department early this morning complaining of several days of worsening left-sided abdominal pain along with nausea and vomiting. She first presented to [facility] about a week ago with similar symptoms and was diagnosed with a kidney infection. No imaging was performed. She was prescribed antibiotics and an antacid. Her pain worsened last night and she came to the ER here. She has never had prior abdominal surgery. She reports that she has not passed gas recently. Her vital signs and lab results have been normal. A CT scan was performed in the ER here and demonstrates dilated loops of small bowel raising the concern for a closed loop small-bowel obstruction. [facility]LY [facility] Social History household members: none Smoking Status: Current some day smoker alcohol intake: current Meds Home Medications and Allergies Home Medications Medication Instructions Recorded Confirmed Type escitalopram oxalate 10 mg tablet 10 mg PO DAILY 06/20/23 06/20/23 History gabapentin 300 mg capsule 300 mg PO DAILY 06/20/23 06/20/23 History meloxicam 7.5 mg tablet 7.5 mg PO DAILY PRN pain 06/20/23 06/20/23 History trazodone 50 mg tablet 50 mg PO BEDTIME 06/20/23 06/20/23 History Allergies Allergy/AdvReac Type Severity Reaction Status Date / Time No Known Drug Allergies Allergy Verified 04/26/23 20:17 Exam Vital Signs (past 8 hours): - 06/20/23 04:31 06/20/23 04:32 06/20/23 05:00 Temperature 97.5 F L Pulse Rate 85 76 69 Respiratory Rate 16 Blood Pressure 119/82 Pulse Oximetry 98 99 98 Oxygen Delivery Method Room Air 06/20/23 05:30 06/20/23 06:00 06/20/23 06:14 Temperature Pulse Rate 60 63 Respiratory Rate Blood Pressure 128/70 Pulse Oximetry 100 100 Oxygen Delivery Method 06/20/23 06:14 06/20/23 06:16 06/20/23 06:30 Temperature Pulse Rate 79 80 70 Respiratory Rate Blood Pressure Pulse Oximetry 100 100 98 Oxygen Delivery Method Room Air 06/20/23 06:30 04/11/24 07:00 06/20/23 07:00 Temperature Pulse Rate 65 Respiratory Rate Blood Pressure 132/75 120/70 Pulse Oximetry 98 Oxygen Delivery Method Room Air 06/20/23 07:30 06/20/23 07:30 06/20/23 08:00 Temperature Pulse Rate 60 Respiratory Rate Blood Pressure 118/69 116/76 Pulse Oximetry 98 Oxygen Delivery Method 06/20/23 08:00 06/20/23 08:30 06/20/23 08:30 Temperature Pulse Rate 60 56 L Respiratory Rate Blood Pressure 120/71 Pulse Oximetry 98 99 Oxygen Delivery Method 06/20/23 08:49 06/20/23 09:00 06/20/23 09:00 Temperature 97.6 F Pulse Rate 72 Respiratory Rate 16 Blood Pressure 125/84 Pulse Oximetry 98 Oxygen Delivery Method 06/20/23 09:45 Temperature 97.0 F L Pulse Rate 68 Respiratory Rate 16 Blood Pressure 122/80 Pulse Oximetry 100 Oxygen Delivery Method Oxygen Delivery Method Room Air Narrative Exam Narrative: Abdomen is tender in all quadrants without peritoneal signs No surgical scars Objective Labs 06/20/23 04:35 06/20/23 04:35 Labs: Laboratory Results - last 24 hr 06/20/23 04:35 WBC 6.5 RBC 4.42 Hgb 12.5 Hct 37.4 MCV 84.7 MCH 28.2 MCHC 33.4 RDW 12.9 Plt Count 551 H Neut % (Auto) 71.7 Lymph % (Auto) 21.1 L [place] % (Auto) 5.7 Eos % (Auto) 0.7 L Baso % (Auto) 0.8 Neut # (Auto) 4700 Lymph # (Auto) 1400 [place] # (Auto) 400 Eos # (Auto) 0 Baso # (Auto) 0 Sodium 142 Potassium 4.0 Chloride 106 Carbon Dioxide 31 BUN 12 Creatinine 0.64 Estimated GFR > 60 BUN/Creatinine Ratio 18.8 Glucose 106 H Lactate 2.0 Calcium 9.5 Total Bilirubin 0.4 AST 22 ALT 13 Alkaline Phosphatase 79 Total Protein 7.7 Albumin 3.5 Globulin 4.2 H Albumin/Globulin Ratio 0.8 L Lipase 19 L Serum , Qual Negative Assessment & Plan Assessment and plan (1) Small bowel obstruction: Status: Acute Plan A 27-year-old woman with an apparent small bowel obstruction on CT scan but no prior surgical history. Given that her vital signs, labs are normal and her abdomen is without peritoneal findings recommend observation. Quality VTE Deep Vein Thrombosis/Pulmonary Embolism Present on Admission: No
--- NOTE | 2023-06-20 15:26 | PC.NURSE ---
Addendum entered by Breanne Payne R.N. 06/20/23 16:18: Orde for NG received. NG placed w/o incidence. Med again w/ IVP dilaudid for discomfort. w/ good relief Original Note: Pt A/o, states she has some abd. pain Med w/ good releif. IVF infusing as per MD orders. Unable to drink prep for gastrograpine MD aware. Call light w/in reach, continue w/plan of care.
--- NOTE | 2023-06-20 18:56 | DI.RAD.S_ITS ---
PROCEDURE: XR ABDOMEN 1V INDICATIONS: f/u sbo TECHNIQUE: One view of the abdomen acquired. COMPARISON: [facility], CT, CT ABDOMEN PELVIS W CON, 06/20/2023, 4:41. FINDINGS: Surgical changes and devices: None. Bowel: There is oral contrast in stomach and small intestine. Small bowel loops are mildly dilated measuring up to 3.7 cm in diameter. The transitional point is likely in the distal small intestine. Soft tissues: No suspicious abdominal calcifications. Visualized solid organ contours appear normal in size. Bones: No suspicious bony lesions. IMPRESSION: Distal small bowel obstruction. Dictated by: Valerio Cartagena M.D. on 06/20/2023 at 20:08 Approved by: Valerio Cartagena M.D. on 06/20/2023 at 20:10
--- NOTE | 2023-06-20 19:52 | PC.NURSE ---
Addendum entered by Katina Sanders R.N. 06/21/23 00:26: Patient back to ACU at 22:45. Alert and very sleepy. Denies pain. NS @ 125. Original Note: Patient transferred to OR @ 19:45.
--- NOTE | 2023-06-20 20:07 | PM.CALLCOV.1 ---
Call Coverage Note Note Date of Patient Contact: 06/20/23 Time of Patient Contact: 20:07 Narrative of Care Provided: 27 y.o woman no prior abdominal surgery admitted with a small bowel obstruction possible closed loop. Worsening abdominal pain over the past 12 hrs, requiring IV dilaudid every 2 hrs. Gastrografin challenge attempted large volume emesis of contrast and NGT dislodged. CT A/P personally reviewed SBO with small volume free fluid. Discussed recommendation that we proceed with exploratory laparotomy possible bowel resection for concern of intestinal compromise. Overview of the operation discussed. Operative risks including infection, hemorrhage, damage to surrounding structures, anastamotic leak discussed. She provides her written and verbal consent to proceed.
[2023-06-20] MEDS: LACTATED RINGERS 1,000 ML 42 ML IV (20:28)
--- NOTE | 2023-06-20 20:56 | SUR.OPER ---
Supine on padded OR bed, head on pillow, arms secured on padded arm boards at <90 degrees abduction, legs uncrossed, safety belt at thigh, tape over blanket over lower legs.
[2023-06-20] MEDS: BUPIVACAINE LIPOSOME 266 MG/20 ML VIAL INJ (21:07)
[2023-06-20] MEDS: BUPIVACAINE 0.25% (PF) 30 ML, EPINEPHrine 0.15 MG INJ (21:09)
[2023-06-20] MEDS: ACETAMINOPHEN IV 1,000 MG/100 ML VIAL 400 MG IV (21:14)
[2023-06-20] MEDS: PIPERACILLIN/TAZO 3.375 GM in SODIUM CHLORIDE 0.9% 100 ML IV (21:29)
--- NOTE | 2023-06-20 22:26 | PM.OP.1 ---
Operative Date/Time/Diagnoses Date of procedure: 06/20/23 Time of procedure: 22:26 Pre-op diagnosis: Small-bowel obstruction Post-op diagnosis: same Procedure & Clinicians Procedure: Exploratory laparotomy Small-bowel resection Same procedure as scheduled: Yes Indications: 27-year-old woman no prior abdominal surgery presents with a small-bowel obstruction. She was initially treated with conservative management. Over the course of 12 hours for abdominal pain significantly worsened and she was taken to the operating room for an exploratory laparotomy. Surgeon: Niels Murcia Anesthesia Type: General Operative Notes Findings: Numerous gelatinous implants on the small bowel. Multiple pelvic adhesions causing small bowel obstruction. Small bowel is viable. Specimen(s): other (Small-bowel) Estimated Blood Loss (mL): 10 Procedure in detail: Patient was brought to the operating room placed supine on the table. Bilateral lower extremity compression devices were applied. General anesthesia was induced and she was intubated with an endotracheal tube. She received Ancef prior to skin incision. A Nicole catheter was sterilely placed. She was prepped and draped in sterile fashion. Time-out was performed. A midline laparotomy was made. The abdomen was entered and the small bowel was eviscerated. Within the pelvis there were multiple adhesions and these were sharply lysed in order to release the remaining small bowel. Small bowel was viable. On close examination there were multiple gelatinous yet firm implants along the wall of the small bowel as it was run from the ligament of Treitz to the terminal ileum. Several enlarged small-bowel mesenteric lymph nodes were also noted. There was a segment of small bowel that had a adhesion over it chronically which was somewhat narrowed and there felt to be a mass within the small bowel lumen as well as a enlarged mesenteric lymph node. A small-bowel resection was performed. A window within the mesentery was made on either side of the segment the bowel was divided with a AUGUSTIN stapler blue load. A crotch stitch was placed with silk. An enterotomy in each limb was made and the 2 limbs were joined together with a 3rd staple load. The common channel was inspected it was widely patent and hemostatic. The common opening was then closed in a running fashion using 3-0 PDS suture. The suture line was then imbricated using silk suture. The mesenteric defect was closed with a running suture. The anastomosis was inspected it was without evidence of leak and well perfused. The small bowel content was returned to the abdomen. The abdomen was lavaged with saline and returned clear. The midline fascia was closed with 1. PDS the subcutaneous tissue reapproximated with Vicryl and the skin closed with Monocryl followed by the application of Dermabond. She tolerated the operation well was extubated and transferred to recovery in stable condition. The sponge and instrument count was correct x2. 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 Complications: none Post-operative Condition: stable Disposition: Acute Care
[2023-06-21] VITALS (11 sets, daily range): BP systolic 106–135; BP diastolic 55–83; PULSE 16–91; RESP 16; TEMP 36.1–36.9; O2SAT 93–99
[2023-06-21] MEDS: SODIUM CHLORIDE 0.9% 1,000 ML 125 ML IV (06:03)
[2023-06-21] MEDS: MELOXICAM 7.5 MG TABLET PO (06:03)
[2023-06-21] MEDS: HYDROMORPHONE 0.5 MG INJ IV ×3 (06:04→19:00)
[2023-06-21] MEDS: OXYCODONE IR 5 MG TABLET PO ×2 (08:50→13:44)
[2023-06-21] MEDS: ESCITALOPRAM 10 MG TABLET PO (08:50)
[2023-06-21] MEDS: ONDANSETRON 4 MG/2 ML INJ IV ×2 (10:57→19:00)
--- NOTE | 2023-06-21 13:14 | CM.DANOTE ---
DCP Assessment Note Pt is a 27yo F, resident of [place], is here due to a SBO and is s/p a small-bowel resection/exploratory laparotomy. PCP: Liss Salazar Payor: [employer] and Medicaid. Reviewed chart and team rounds for pt's medical status and initial discharge needs. COMPUTER TESTER met w/patient at bedside; introduced self and role. Pt was found in bed, endorsing onset of nausea, I just threw up not too long ago. Pt is able to confirm living situation with brother in [place] and support from mother who lives in [place], [place]. Pt declined any discharge needs at this time. Plan: Plan of care evolving. CM team will plan to follow clinical course closely for assessment of need and coordination of discharge plan. STALIN Rome Discharge Planning/Care Management CM Discharge Assessment Start: 06/21/23 13:12 Freq: Status: Active Protocol: Document 06/21/23 13:12 MW (Rec: 06/21/23 13:13 [id number]) Discharge Planning Assessment Assigned Senior Technical Program Manager MOHIT Kitchen DPOA/Assigned Designee Name Brother Bryan Contact Information [phone] Advance Directives? No Advance Directives on File No History Provided By Patient,Medical Record Has Patient been admitted in last 30 No days? Prior Living Arrangements Apartment/Condo Comment Pt lives with brother in [place]. Household Members family,none Independent with ADL's Yes Is patient alert and oriented? Yes Patient/Family Preference Home with Home Health Barriers to Discharge No Comment None identified. Whiteboard Updated in Patient Room with Yes name and ext. # of Senior Technical Program Manager Please Provide Date Initial DC 06/21/23 Assessment Was Performed Next Review Type Continued Stay Review
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
--- NOTE | 2023-06-21 15:27 | PM.PNPO.1 ---
Subjective Subjective Date Patient Seen: 06/21/23 Time Patient Seen: 15:27 Interval history: Feels significantly better than yesterday. Has incisional pain but the bloating and nausea has resolved. Hungry Exam Vital Signs (past 8 hours): - 06/21/23 08:00 06/21/23 08:00 06/21/23 12:00 Temperature 97.8 F Pulse Rate 79 Respiratory Rate 16 Blood Pressure 111/74 Pulse Oximetry 99 98 93 Oxygen Delivery Method Room Air Room Air Oxygen Flow Rate 0 06/21/23 13:00 Temperature 97.0 F L Pulse Rate 81 Respiratory Rate 16 Blood Pressure 130/83 Pulse Oximetry 98 Oxygen Delivery Method Oxygen Flow Rate Oxygen Delivery Method Room Air Oxygen Flow Rate 0 Narrative Exam Narrative: General adult woman alert oriented no acute distress Abdomen soft appropriately tender to palpation. Midline incision clean dry intact. Objective Labs 06/20/23 04:35 06/20/23 04:35 [facility] Social History household members: family and none Smoking Status: Current some day smoker alcohol intake: never Assessment & Plan Post-op Postoperative Procedures: Procedures Operation Date: 06/20/23 19:30 Actual Procedure Side Surgeon p Exploratory Laparotomy WITH BOWEL RESECTION Not Applicable Niels Murcia MD Postoperative status narrative: 27-year-old woman postoperative day 1 status post exploratory laparotomy with small-bowel resection for small-bowel obstruction secondary to adhesive disease. She is appropriately recovering from surgery. -full liquid diet -SCDs and prophylactic Lovenox -DC IV fluids -remove Nicole catheter -anticipate discharge home this weekend Quality VTE Deep Vein Thrombosis/Pulmonary Embolism Present on Admission: No
[2023-06-21] MEDS: OXYCODONE IR 5 MG TABLET 10 MG PO (15:46)
[2023-06-21] MEDS: ACETAMINOPHEN 325 MG TABLET 650 MG PO (20:33)
[2023-06-21] MEDS: TRAZODONE 50 MG TABLET PO (22:23)
[2023-06-21] MEDS: OXYCODONE IR 10 MG TABLET PO (22:23)
[2023-06-22] VITALS (11 sets, daily range): BP systolic 103–131; BP diastolic 61–92; PULSE 71–87; RESP 16–18; TEMP 36.2–36.8; O2SAT 96–100
--- NOTE | 2023-06-22 05:17 | PC.NURSE ---
Patient resting in bed most of the shift. Up to the bathroom in room independently. Abd pain has been controlled well with po oxycodone. Voiding fine, no BM noted during electrical installation supervisor. Patient has been A&O, calm and cooperative.
[2023-06-22] MEDS: ONDANSETRON 4 MG/2 ML INJ IV (07:46)
[2023-06-22] MEDS: ESCITALOPRAM 10 MG TABLET PO (07:46)
[2023-06-22] MEDS: MELOXICAM 7.5 MG TABLET PO (07:46)
[2023-06-22] MEDS: OXYCODONE IR 10 MG TABLET PO ×3 (07:47→20:52)
[2023-06-22] MEDS: HYDROMORPHONE 0.5 MG INJ IV ×3 (08:51→14:20)
--- NOTE | 2023-06-22 08:57 | PM.CALLCOV.1 ---
Call Coverage Note Note Date of Patient Contact: 06/22/23 Time of Patient Contact: 08:50 Narrative of Care Provided: 27 F admitted for SBO s/p bowel resection. Rapid response called. Patient syncopized having a bowel movement. She did not fall or hit her head. There was rapid improvement back to alert. Glucose is normal. She reports history of prior syncope, no seizures. Having some abdominal pain this morning. BP is normal, O2 98% on room air. Discussed with primary team, will add on labs since it has been a couple of days. Repeat CBC and chemistries ordered. Likely no interventions necessary at this time.
[2023-06-22 09:27] LABS: Add Manual Diff / Slide Review NO; Basophils Absolute Auto 100 /uL (0-100); Basophils Percent Auto 1.4 % (0-2); Eosinophils Absolute Auto 0 /uL (0-450); Eosinophils Percent Auto 0.3 % (2-4); Hematocrit 37.3 % (36-46); Hemoglobin 12.4 g/dL (12.0-16.0); Lymphocytes Absolute Auto 2300 /uL (1100-4500); Lymphocytes Percent Auto 30.7 % (25-40); Mean Corpuscular HGB Conc 33.3 % (30-36); Mean Corpuscular Hemoglobin 27.9 PG (26-34); Mean Corpuscular Volume 83.7 fL (80-100); Monocytes Absolute Auto 500 /uL (0-900); Monocytes Percent Auto 7.2 % (3-14); Neutrophils Absolute Auto 4600 /uL (1500-7000); Neutrophils Percent Auto 60.4 % (50-75); Platelet Count 553 X10^3/uL (150-400); Red Blood Cell Count 4.46 X10^6/uL (4.0-5.2); White Blood Cell Count 7.6 X10^3/uL (4.5-11.0)
[2023-06-22 09:39] LABS: Alanine Aminotransferase 16 IU/L (<35); Albumin Globulin Ratio 1.1 (1.0-2.8); Alkaline Phosphatase 81 U/L (38-126); Aspartate Aminotransferase 32 IU/L (14-36); BUN Creatinine Ratio 14.1 (6-22); Bilirubin Total 0.4 mg/dL (0.2-1.3); Blood Urea Nitrogen 10 mg/dL (7-17); Calcium 9.6 mg/dL (8.4-10.2); Carbon Dioxide 22 mmol/L (22-32); Chloride 107 mmol/L (98-107); Estimated Glomerular Filt Rate > 60 mL/min (>60); Globulin 3.8 g/dL (1.7-4.1); Glucose 105 mg/dL (70-100); HEMOLYSIS < 15 (0-50); Magnesium 2.1 mg/dL (1.6-2.3); Potassium 3.1 mmol/L (3.4-5.1); Sodium 143 mmol/L (137-145); Total Protein 7.8 g/dL (6.3-8.2)
[2023-06-22] MEDS: METOCLOPRAMIDE 10 MG/2 ML INJ 5 MG IV ×2 (09:58→20:51)
--- NOTE | 2023-06-22 11:51 | P.PN_ITS ---
Subjective Subjective Date Patient Seen: 06/22/23 Time Patient Seen: 11:51 Interval history: Patient had a syncopal event this morning barium bowel movement. According to nursing she did have some blood bowel movement. Hemoglobin and vitals have been stable. She has had some nausea today Exam Vital Signs (past 8 hours): - 06/22/23 04:00 06/22/23 08:00 Temperature 98.0 F 98.2 F Pulse Rate 80 71 Respiratory Rate 16 16 Blood Pressure 110/61 118/77 Pulse Oximetry 98 96 Oxygen Flow Rate 0 Oxygen Delivery Method Room Air Oxygen Flow Rate 0 Narrative Exam Narrative: Sleeping Resp Effort & Inspection: normal respiratory effort Objective Labs 06/22/23 09:18 06/22/23 09:18 Labs: Laboratory Results - last 24 hr 06/22/23 09:18 WBC 7.6 RBC 4.46 Hgb 12.4 Hct 37.3 MCV 83.7 MCH 27.9 MCHC 33.3 RDW 13.0 Plt Count 553 H Neut % (Auto) 60.4 Lymph % (Auto) 30.7 [place] % (Auto) 7.2 Eos % (Auto) 0.3 L Baso % (Auto) 1.4 Neut # (Auto) 4600 Lymph # (Auto) 2300 [place] # (Auto) 500 Eos # (Auto) 0 Baso # (Auto) 100 Sodium 143 Potassium 3.1 L Chloride 107 Carbon Dioxide 22 BUN 10 Creatinine 0.71 Estimated GFR > 60 BUN/Creatinine Ratio 14.1 Glucose 105 H Calcium 9.6 Magnesium 2.1 Total Bilirubin 0.4 AST 32 ALT 16 Alkaline Phosphatase 81 Total Protein 7.8 Albumin 4.0 Globulin 3.8 Albumin/Globulin Ratio 1.1 [facility] Social History household members: family and none Smoking Status: Current some day smoker alcohol intake: never Assessment & Plan Assessment and plan (1) Small bowel obstruction: Status: Acute Plan Wait for nausea to resolve and for more bowel function before advancing diet Quality VTE Deep Vein Thrombosis/Pulmonary Embolism Present on Admission: No
--- NOTE | 2023-06-22 12:40 | CM.DPC ---
DCP Cont Patient discussed in morning rounds. Patient continues to struggle with pain and nausea. Not likely to discharge today. Plan: Discharge home w/family anticipated. No CM team needs identified at this time. LESLIE
[2023-06-22] MEDS: ENOXAPARIN 40 MG/0.4 ML SYRINGE SUBCUT (12:59)
[2023-06-22] MEDS: POTASSIUM CHLORIDE 20 MEQ TAB 40 MEQ PO ×2 (14:17→21:00)
[2023-06-22] MEDS: OXYCODONE IR 5 MG TABLET 10 MG PO (18:28)
--- NOTE | 2023-06-22 19:43 | PC.NURSE ---
Pain/Syncopy: Pt slept during the night and woke up in extreme pain. Pt medicated but having little response to the oxy. She then had to have a bm and got up to the bathroom. She had a bm on the toilet and got up to go back to bed. On return to bed she lost cons and a rapid response ws called. Dr Chan came to room and examined patient. She was transfered to bed with assist of 4 people. HOB lowered in bed. BP 120/61, RR 16, P 78 O2 sat 99%, Glucose 94. Pt aroused almost immed. after being in bed. She was oriented. Still asking for pain medication. Dr. Chan said it was okay to give pt Dilaudid. Med was given. Her brother who has been staying the night with her had left when this episode occurred and when he called he was notified of what occurred. Printed information for fainting given. Pt instructed on modalities to decrease same. (Hand squeeze/palm squeeze) Printed information also given. The dose of dilaudid didn't help the pain and pt didnt feel like zofran was helping her nausea. Dr Billingsley was called (He had already been called about rapid response by Dr. Chan. May give a 1 time dose of dilaudid and try reglan. These were given and pt reported her pain was much less and nausea had resolved, she fell asleep for a short time. When she awoke she felt much better and pain was in control. She was able to eat a small amount of lunch. Later she felt well enough to take a shower, she had another bm, no dizziness and no problems. She is able to recall her instructions to decrease dizziness and potential for syncopy.
[2023-06-22] MEDS: TRAZODONE 50 MG TABLET PO (20:53)
[2023-06-22] MEDS: ACETAMINOPHEN 325 MG TABLET 650 MG PO (20:53)
[2023-06-23] VITALS (9 sets, daily range): BP systolic 104–136; BP diastolic 62–94; PULSE 65–82; RESP 16–17; TEMP 35.9–36.8; O2SAT 96–99
[2023-06-23] MEDS: HYDROMORPHONE 0.5 MG INJ IV (00:42)
[2023-06-23] MEDS: ACETAMINOPHEN 325 MG TABLET 650 MG PO ×2 (05:16→19:57)
[2023-06-23 07:09] LABS: BUN Creatinine Ratio 12.7 (6-22); Blood Urea Nitrogen 8 mg/dL (7-17); Calcium 9.1 mg/dL (8.4-10.2); Carbon Dioxide 33 mmol/L (22-32); Chloride 108 mmol/L (98-107); Estimated Glomerular Filt Rate > 60 mL/min (>60); Glucose 75 mg/dL (70-100); HEMOLYSIS < 15 (0-50); Potassium 4.2 mmol/L (3.4-5.1); Sodium 139 mmol/L (137-145)
[2023-06-23] MEDS: ENOXAPARIN 40 MG/0.4 ML SYRINGE SUBCUT (08:07)
[2023-06-23] MEDS: GABAPENTIN 300 MG CAPSULE PO (08:07)
[2023-06-23] MEDS: ESCITALOPRAM 10 MG TABLET PO (08:07)
[2023-06-23] MEDS: OXYCODONE IR 10 MG TABLET PO ×3 (08:08→19:57)
--- NOTE | 2023-06-23 10:13 | PM.PN.1 ---
Subjective Subjective Date Patient Seen: 06/23/23 Time Patient Seen: 10:13 Interval history: Feeling somewhat better today but still not passing gas and she is still burping. Exam Vital Signs (past 8 hours): - 06/23/23 04:00 06/23/23 08:00 Temperature 96.8 F L 97.9 F Pulse Rate 71 71 Respiratory Rate 16 16 Blood Pressure 105/69 104/74 Pulse Oximetry 98 99 Oxygen Flow Rate 0 Oxygen Delivery Method Room Air Oxygen Flow Rate 0 Narrative Exam Narrative: Abdomen is soft Incision is clean dry and intact Objective Labs 06/22/23 09:18 06/23/23 06:35 Labs: Laboratory Results - last 24 hr 06/23/23 06:35 Sodium 139 Potassium 4.2 Chloride 108 H Carbon Dioxide 33 H BUN 8 Creatinine 0.63 Estimated GFR > 60 BUN/Creatinine Ratio 12.7 Glucose 75 Calcium 9.1 PFSH Social History household members: family and none Smoking Status: Current some day smoker alcohol intake: never Assessment & Plan Assessment and plan (1) Small bowel obstruction: Status: Acute Plan Postoperative ileus which is common following small-bowel resection Await passage of flatus before advancing diet Quality VTE Deep Vein Thrombosis/Pulmonary Embolism Present on Admission: No
--- NOTE | 2023-06-23 13:08 | PC.NURSE ---
Dayshift note: Up OOB to BR, ambulating in hallway after meals. Encouraged mobility, deep breathing, SCDs while in bed. Voiding, large amount of FLATUS passed. C/O Mod. Abdominal pain, adequately controlled with PO medications. Dressing to abdomen removed by Dr. Billingsley, midline incision ALVARO, clean and dry, healing. Tolerating full liquid diet in small amounts, no nausea. Calls appropriately for assistance, sibling at bedside providing supportive care.
--- NOTE | 2023-06-23 13:23 | CM.DPC ---
DCP Cont: Per Surgeon, pt with some syncope yesterday and pain management issues and seems to have resolved and pain controlled and nausea decreased and possible discharge home today vs tomorrow pending progress. No identified barriers to discharge. Plan: SW to follow closely for likely discharge home via family POV today vs tomorrow pending progress. MOHIT Jones
[2023-06-23] MEDS: TRAZODONE 50 MG TABLET PO (21:59)
[2023-06-24] VITALS: BP 126/85; PULSE 80; RESP 16; TEMP 36; O2SAT 97
[2023-06-24] MEDS: OXYCODONE IR 10 MG TABLET PO ×3 (00:04→09:33)
[2023-06-24] MEDS: ACETAMINOPHEN 325 MG TABLET 650 MG PO ×2 (00:04→04:54)
[2023-06-24 05:00] VITALS: BP 121/81; PULSE 73; RESP 16; TEMP 36.4; O2SAT 98
[2023-06-24 08:00] VITALS: BP 115/80; PULSE 66; RESP 15; TEMP 36.6
[2023-06-24] MEDS: ESCITALOPRAM 10 MG TABLET PO (09:33)
[2023-06-24] MEDS: ENOXAPARIN 40 MG/0.4 ML SYRINGE SUBCUT (09:33)
[2023-06-24] MEDS: GABAPENTIN 300 MG CAPSULE PO (09:33)
--- NOTE | 2023-06-24 11:58 | PC.NURSE ---
Patient has a ml incision that is cdi and open to air. She complained of discomfort this morning and was given some oxycodone for comfort. She is tolerating her diet and may be advanced. Dr. Billignsley in to see patient and she is comfortable now.
[2023-06-24 12:00] VITALS: BP 114/80; PULSE 71; RESP 16; TEMP 36.6
--- NOTE | 2023-06-24 12:38 | P.DS_ITS ---
History of Present Illness History of Present Illness Chief complaint: abd pain Narrative: Ariela Cifuentes is a 27-year-old woman who presented to the emergency department early this morning complaining of several days of worsening left- sided abdominal pain along with nausea and vomiting. She first presented to [facility] about a week ago with similar symptoms and was diagnosed with a kidney infection. No imaging was performed. She was prescribed antibiotics and an antacid. Her pain worsened last night and she came to the ER here. She has never had prior abdominal surgery. She reports that she has not passed gas recently. Her vital signs and lab results have been normal. A CT scan was performed in the ER here and demonstrates dilated loops of small bowel raising the concern for a closed loop small-bowel obstruction. Discharge Providers Provider Date of admission: 06/20/23 06:08 Discharge Date: 06/24/23 Primary care physician: Liss Salazar PA-C Discharge provider: Jacob Billingsley MD Summary Hospital Course Discharge Diagnosis: Small bowel obstruction Hospital Course: The patient underwent exploratory laparotomy and small-bowel resection by Dr. Murcia. She was tolerating a diet and having bowel function the of her discharge. Exam Vital Signs (past 8 hours): - 06/24/23 05:00 06/24/23 05:00 06/24/23 08:00 Temperature 97.6 F 97.9 F Pulse Rate 73 66 Respiratory Rate 16 15 Blood Pressure 121/81 115/80 Pulse Oximetry 98 98 Oxygen Delivery Method Room Air Oxygen Flow Rate 0 06/24/23 11:57 06/24/23 12:00 Temperature 97.8 F Pulse Rate 71 Respiratory Rate 16 Blood Pressure 114/80 Pulse Oximetry Oxygen Delivery Method Room Air Oxygen Flow Rate Oxygen Delivery Method Room Air Oxygen Flow Rate 0 Objective Labs 06/22/23 09:18 06/23/23 06:35 [facility] Social History household members: family and none Smoking Status: Current some day smoker alcohol intake: never Discharge Plan Discharge Plan Patient Disposition: Home Provider Discharge Comment: No lifting greater than 30 lb for 2 weeks. Okay to shower after 24 hours. Discharge orders & Medications Prescriptions: New hydrocodone-acetaminophen 5-325 mg tablet 1 tab PO Q8H PRN (Reason: pain) Qty: 14 0RF Continued trazodone 50 mg tablet 50 mg PO BEDTIME meloxicam 7.5 mg tablet 7.5 mg PO DAILY PRN (Reason: pain) gabapentin 300 mg capsule 300 mg PO DAILY escitalopram oxalate 10 mg tablet 10 mg PO DAILY Follow up/Referrals: Liss Salazar PA-C [Primary Care Provider] - Miscellaneous,Doctor, [Non-Staff] - Visit Report/Discharge Packet Instructions: Fainting, Small Bowel Resection Stand Alone Forms: Patient Portal/API, Stroke Signs & Symptoms Discharge Data Primary Care Provider: Liss Salazar Quality VTE Deep Vein Thrombosis/Pulmonary Embolism Present on Admission: No
--- NOTE | 2023-06-24 16:08 | CM.DPC ---
DCP Continued: Discharge order is in, 4.15. Per RN, pt is taking a shower and will be discharging soon. No identified dc needs at this time. Plan: Discharge home with brother. CM Team following for any pending dc needs.
--- NOTE | 2023-06-27 01:31 | PC.NURSE ---
Late entry : on 06/23/2023, I did pull 10 mg Oxycodone and administered it to the patient in Room 203 Ariela Cifuentes for pain rated 7/10 to mid abdomen. reassessed 30 [id number] later and patient was resting comfortably and allowed to sleep.
--- NOTE | 2023-06-28 12:55 | PC.NURSE ---
LATE ENTRY FOR 06/20/23: Pt medicated w/ 0.5 Dilaudid IVP for discomfort. With good relief. Medication did not scan
== END 2023-06-24 16:35 | disposition home or self-care (01) | DRG 230 ==
LOC: ED 06:08 → AC 08:16
PROVIDERS: Internal Medicine; Surgery; Admitting Provider Surgery; Emergency Provider Emergency Medicine; PCP Physician Assistant; Referring Provider Emergency Medicine; Visit Provider Surgery
PROC: 0DB80ZZ Excision of Small Intestine, Open Approach (ICD-10-PCS; CPT 49000; principal; 2023-06-20 19:30)
DX: K56.50 Intestinal adhesions [bands], unspecified as to partial versus complete obstruction (principal); E44.0 Moderate protein-calorie malnutrition; Z68.1 Body mass index [BMI] 19.9 or less, adult; F17.200 Nicotine dependence, unspecified, uncomplicated; K56.7 Ileus, unspecified; R55 Syncope and collapse; Z86.19 Personal history of other infectious and parasitic diseases
CPT/HCPCS: 36415; 44120; 71045; 74018; 74177; 80048; 80053; 81003; 81025; 82962; 83605; 83690; 83735; 84703; 85025; 96361; 96374; 96375; 99233; 99284; C9113; C9290; J0136; J0171; J0330; J1170; J1650; J1885; J2250; J2405; J2543; J2704; J2765; J3010; Q9967

== ENCOUNTER 2023-10-01 17:30 | Emergency (ER) | payer OTHER, MEDICAID, SELFPAY ==
[2023-06-20 11:17] VITALS: BMI 19.3
[2023-10-01 17:56] VITALS: BP 103/67; PULSE 80; RESP 16; TEMP 37; O2SAT 98; BMI 18.8
[2023-10-01 18:43] LABS: Add Manual Diff / Slide Review NO; Basophils Absolute Auto 0 /uL (0-100); Basophils Percent Auto 0.8 % (0-2); Eosinophils Absolute Auto 100 /uL (0-450); Eosinophils Percent Auto 1.6 % (2-4); Hematocrit 36.7 % (36-46); Hemoglobin 12.4 g/dL (12.0-16.0); Lymphocytes Absolute Auto 1500 /uL (1100-4500); Lymphocytes Percent Auto 43.8 % (25-40); Mean Corpuscular HGB Conc 33.8 % (30-36); Mean Corpuscular Hemoglobin 28.6 PG (26-34); Mean Corpuscular Volume 84.6 fL (80-100); Monocytes Absolute Auto 200 /uL (0-900); Monocytes Percent Auto 5.8 % (3-14); Neutrophils Absolute Auto 1700 /uL (1500-7000); Platelet Count 198 X10^3/uL (150-400); Red Blood Cell Count 4.34 X10^6/uL (4.0-5.2); White Blood Cell Count 3.5 X10^3/uL (4.5-11.0)
[2023-10-01 19:08] LABS: RBC Urine 30-100/HPF (0-5/HPF); Urine Volume 10mL (spun); WBC Urine 1-5/HPF (0-5/HPF)
[2023-10-01 19:09] LABS: BUN Creatinine Ratio 13.5 (6-22); Blood Urea Nitrogen 10 mg/dL (7-17); Calcium 8.7 mg/dL (8.4-10.2); Carbon Dioxide 20 mmol/L (22-32); Chloride 112 mmol/L (98-107); Estimated Glomerular Filt Rate > 60 mL/min (>60); Glucose 91 mg/dL (70-100); HEMOLYSIS < 15 (0-50); Potassium 3.7 mmol/L (3.4-5.1); Sodium 138 mmol/L (137-145)
[2023-10-01 19:09] LABS: Bacteria Urine None Seen; Culture Indicated Urine Cult Not Indicated; Squamous Epithelial Cell Urine 1-5 /HPF (0-5/HPF)
[2023-10-01 19:10] LABS: Mucus Urine 1+ (Negative)
[2023-10-01 19:26] LABS: Ictotest Urine Negative (Negative)
--- NOTE | 2023-10-01 21:01 | PC.NURSE ---
2054 TELEPHONIC RN attempted to call pt back to room and pt was not in waiting room or waiting room around the corner. 2100: RN called pt cell and contact that pt was with cell and no answer on either
--- NOTE | 2023-10-02 04:50 | ED.FEMALEGU ---
HPI - Female Genitourinary General Chief complaint: Vaginal Bleeding Stated complaint: vaginal bleeding Source: patient Mode of arrival: Wheelchair History of Present Illness HPI Narrative: Patient left without seeing provider Related Data Home Medications Medication Instructions Recorded Confirmed escitalopram oxalate 10 mg tablet 10 mg PO DAILY 06/20/23 07/18/23 gabapentin 300 mg capsule 300 mg PO DAILY 06/20/23 07/18/23 meloxicam 7.5 mg tablet 7.5 mg PO DAILY PRN pain 06/20/23 07/18/23 trazodone 50 mg tablet 50 mg PO BEDTIME 06/20/23 07/18/23 Previous Rx's Medication Instructions Recorded hydrocodone 5 mg-acetaminophen 325 1 tab PO Q8H PRN pain #14 tabs 06/24/23 mg tablet hydrocodone 5 mg-acetaminophen 325 1 tab PO Q8H PRN pain #14 tabs 06/24/23 mg tablet hydrocodone 5 mg-acetaminophen 325 1 tab PO Q8H PRN pain #20 tabs 06/24/23 mg tablet Allergies Allergy/AdvReac Type Severity Reaction Status Date / Time No Known Drug Allergies Allergy Verified 07/18/23 11:40 Patient History alcohol intake frequency: 0-2 drinks per day Last Alcoholic Drink: does not use Substance Use Type: marijuana Exam Initial Vital Signs Initial Vital Signs: Vital Signs Temperature 98.6 F 10/01/23 17:56 Pulse Rate 80 10/01/23 17:56 Respiratory Rate 16 10/01/23 17:56 Blood Pressure 103/67 10/01/23 17:56 Pulse Oximetry 98 10/01/23 17:56 Oxygen Delivery Method Room Air 10/01/23 17:56 MDM - Female Genitourinary Lab Data 10/01/23 18:30 10/01/23 18:30 Labs: Lab Results 10/01/23 10/01/23 Range/Units 18:05 18:30 WBC 3.5 L (4.5-11.0) X10^3/uL RBC 4.34 (4.0-5.2) X10^6/uL Hgb 12.4 (12.0-16.0) g/dL Hct 36.7 (36-46) % MCV 84.6 (80-100) fL MCH 28.6 (26-34) PG MCHC 33.8 (30-36) % RDW 13.0 (11.6-14.8) % Plt Count 198 (150-400) X10^3/uL Neut % (Auto) 48.0 L (50-75) % Lymph % (Auto) 43.8 H (25-40) % [place] % (Auto) 5.8 (3-14) % Eos % (Auto) 1.6 L (2-4) % Baso % (Auto) 0.8 (0-2) % Neut # (Auto) 1700 (9570-0260) /uL Lymph # (Auto) 1500 (9619-1267) /uL [place] # (Auto) 200 (0-900) /uL Eos # (Auto) 100 (0-450) /uL Baso # (Auto) 0 (0-100) /uL Sodium 138 (137-145) mmol/L Potassium 3.7 (3.4-5.1) mmol/L Chloride 112 H (98-107) mmol/L Carbon Dioxide 20 L (22-32) mmol/L BUN 10 (7-17) mg/dL Creatinine 0.74 (0.52-1.04) mg/dL Estimated GFR > 60 (>60) mL/min BUN/Creatinine Ratio 13.5 (6-22) Glucose 91 (70-100) mg/dL Calcium 8.7 (8.4-10.2) mg/dL Ur Bilirubin Confirm Negative (Negative) Urine RBC 30-100/hpf H (0-5/HPF) Urine WBC 1-5/hpf (0-5/HPF) Ur Squamous Epith Cells 1-5 /hpf (0-5/HPF) Urine Bacteria None seen (None) Urine Mucus 1+ H (Negative) Ur Culture Indicated? Cult not indicated Vol Urine Centrifuged 10ml (spun) Blood Type O Positive Antibody Screen Negative Point of Care Testing Test Results Negative Urine Dip Bedside Urine Glucose Negative Bedside Urine Bilirubin + 1 Bedside Urine Ketone - Negative Urine Specific [place] 1.025 Bedside Urine Occult Blood +++ Bedside Urine pH 6 Bedside Urine Protein +/- 15 Bedside Urine Urobilinogen - Negative Bedside Urine Nitrite - Negative Bedside Urine Leukocytes - Negative Esterase Discharge Plan Departure Patient Disposition: Left Without Being Seen Clinical Impression: Patient left after triage Prescriptions: No Action trazodone 50 mg tablet 50 mg PO BEDTIME meloxicam 7.5 mg tablet 7.5 mg PO DAILY PRN (Reason: pain) gabapentin 300 mg capsule 300 mg PO DAILY escitalopram oxalate 10 mg tablet 10 mg PO DAILY hydrocodone-acetaminophen 5-325 mg tablet 1 tab PO Q8H PRN (Reason: pain) Qty: 14 0RF hydrocodone-acetaminophen 5-325 mg tablet 1 tab PO Q8H PRN (Reason: pain) Qty: 14 0RF hydrocodone-acetaminophen 5-325 mg tablet 1 tab PO Q8H PRN (Reason: pain) Qty: 20 0RF
== END 2023-10-01 20:55 | disposition left against medical advice (07) ==
PROVIDERS: Emergency Provider Emergency Medicine; PCP Physician Assistant
DX: N93.9 Abnormal uterine and vaginal bleeding, unspecified (principal)
CPT/HCPCS: 80048; 81003; 81015; 81025; 85025; 86850; 86900; 86901; 99282